=== PATIENT | female | born 1995 | race American Indian/Alaskan Native ===

== ENCOUNTER 2020-04-04 14:52 | Emergency (ER) | payer SELFPAY | END 2020-04-04 15:48 | LOC: ED 14:52 | DX: R42 Dizziness and giddiness (principal); Z53.21 Procedure and treatment not carried out due to patient leaving prior to being seen by health care provider ==

== ENCOUNTER 2020-04-13 14:20 | Emergency (ER) | payer OTHER ==
[2020-04-13] MEDS ORDERED: METOCLOPRAMIDE 10 MG/2 ML INJ IV ONE (14:25)
[2020-04-13] MEDS ORDERED: LACTATED RINGERS 1,000 ML IV ONE (14:25)
[2020-04-13] MEDS ORDERED: diphenhydrAMINE 50 MG/ML VIAL IV ONE (14:25)
--- NOTE | 2020-04-13 14:28 | Emergency Department Report ---
ED General Adult HPI - General Stated complaint: DEHYDRATED Time Seen by Provider: 04/13/20 14:24 - History of Present Illness Initial comments: 24-year-old -[place] female patient presents with complaints of nausea and vomiting starting today. Patient states she had a positive test, however she is unsure of how far along she is. LMP was the first week of February per patient. She is G 4. She is not currently following with an PROJECT MANAGEMENT MANAGER per patient. She admits to mild lower abdominal cramping, but denies any urinary symptoms, vaginal discharge/dyspareunia, stool changes, fever/chills/sweats, chest pain, or shortness of breath. - Related Data Previous Rx's Medication Instructions Recorded Last Taken Type Amoxicillin/Potassium Clav 1 each PO BID 5 Days #10 tablet 04/13/20 Unknown Rx [Augmentin 875-125 Tablet] Metoclopramide [Reglan] 10 mg PO TID PRN #30 tab 04/13/20 Unknown Rx diphenhydrAMINE [Benadryl CAP] 25 mg PO TID PRN #30 capsule 04/13/20 Unknown Rx Allergies Allergy/AdvReac Type Severity Reaction Status Date / Time No Known Allergies Allergy Unverified 04/13/20 14:21 ED Review of Systems ROS: Stated complaint: DEHYDRATED Other details as noted in HPI Constitutional: denies: chills, fever, malaise Respiratory: denies: cough, shortness of breath Cardiovascular: denies: chest pain Gastrointestinal: nausea, vomiting. denies: diarrhea, constipation, hematemesis, melena, hematochezia Genitourinary: denies: urgency, dysuria, frequency, hematuria, discharge, abnormal menses Skin: denies: rash, lesions, change in color Neurological: denies: headache Hematological/Lymphatic: denies: easy bleeding ED Past Medical Hx - Medications Home Medications: Home Medications Medication Instructions Recorded Confirmed Last Taken Type Amoxicillin/Potassium Clav 1 each PO BID 5 Days #10 tablet 04/13/20 Unknown Rx [Augmentin 875-125 Tablet] Metoclopramide [Reglan] 10 mg PO TID PRN #30 tab 04/13/20 Unknown Rx diphenhydrAMINE [Benadryl CAP] 25 mg PO TID PRN #30 capsule 04/13/20 Unknown Rx ED Physical Exam - General General appearance: alert, in no apparent distress - Head Head exam: Present: atraumatic, normocephalic - Eye Eye exam: Present: normal appearance - Neck Neck exam: Present: normal inspection - Respiratory Respiratory exam: Present: normal lung sounds bilaterally. Absent: respiratory distress - Cardiovascular Cardiovascular Exam: Present: regular rate, normal rhythm - GI/Abdominal GI/Abdominal exam: Present: soft, normal bowel sounds. Absent: distended, tenderness, guarding, rebound, rigid - Back Exam Back exam: Present: full ROM - Neurological Exam Neurological exam: Present: alert, oriented X3 - Psychiatric Psychiatric exam: Present: normal affect, normal mood - Skin Skin exam: Present: warm, dry, intact, normal color. Absent: rash ED Course Vital Signs 04/13/20 14:21 Temperature 98.6 F Pulse Rate 91 H Respiratory 18 Rate Blood Pressure 112/64 O2 Sat by Pulse 99 Oximetry ED Medical Decision Making - Lab Data Result diagrams: 04/13/20 14:27 04/13/20 14:27 Lab Results 04/13/20 04/13/20 04/13/20 Range/Units 14:27 14:27 14:27 WBC 10.5 (4.5-11.0) K/mm3 RBC 4.68 (3.65-5.03) M/mm3 Hgb 13.5 (10.1-14.3) gm/dl Hct 39.3 (30.3-42.9) % MCV 84 (79-97) fl MCH 29 (28-32) pg MCHC 35 H (30-34) % RDW 12.5 L (13.2-15.2) % Plt Count 253 (140-440) K/mm3 Lymph % (Auto) 23.6 (13.4-35.0) % Jack % (Auto) 7.0 (0.0-7.3) % Eos % (Auto) 0.8 (0.0-4.3) % Baso % (Auto) 0.3 (0.0-1.8) % Lymph # (Auto) 2.5 (1.2-5.4) K/mm3 Jack # (Auto) 0.7 (0.0-0.8) K/mm3 Eos # (Auto) 0.1 (0.0-0.4) K/mm3 Baso # (Auto) 0.0 (0.0-0.1) K/mm3 Seg Neutrophils % 68.3 (40.0-70.0) % Seg Neutrophils # 7.2 (1.8-7.7) K/mm3 Sodium 136 L (137-145) mmol/L Potassium 3.4 L (3.6-5.0) mmol/L Chloride 99.7 (98-107) mmol/L Carbon Dioxide 26 (22-30) mmol/L Anion Gap 14 mmol/L BUN 8 (7-17) mg/dL Creatinine 0.7 (0.6-1.2) mg/dL Estimated GFR > 60 ml/min BUN/Creatinine Ratio 11 % Glucose 95 (65-100) mg/dL Calcium 9.1 (8.4-10.2) mg/dL Total Bilirubin 0.40 (0.1-1.2) mg/dL AST 16 (5-40) units/L ALT 10 (7-56) units/L Alkaline Phosphatase 40 (35-129) units/L Total Protein 7.1 (6.3-8.2) g/dL Albumin 4.2 (3.9-5) g/dL Albumin/Globulin Ratio 1.4 % HCG, Qual Positive (Negative) HCG, Quant (0-4) mIU/mL Urine Color (Yellow) Urine Turbidity (Clear) Urine pH (5.0-7.0) Ur Specific [place] (1.003-1.030) Urine Protein (Negative) mg/dL Urine Glucose (UA) (Negative) mg/dL Urine Ketones (Negative) mg/dL Urine Blood (Negative) Urine Nitrite (Negative) Urine Bilirubin (Negative) Urine Urobilinogen (<2.0) mg/dL Ur Leukocyte Esterase (Negative) Urine WBC (Auto) (0.0-6.0) /HPF Urine RBC (Auto) (0.0-6.0) /HPF U Epithel Cells (Auto) (0-13.0) /HPF Urine Mucus /HPF Urine Yeast (Budding) /HPF 04/13/20 04/13/20 Range/Units 14:49 15:50 WBC (4.5-11.0) K/mm3 RBC (3.65-5.03) M/mm3 Hgb (10.1-14.3) gm/dl Hct (30.3-42.9) % MCV (79-97) fl MCH (28-32) pg MCHC (30-34) % RDW (13.2-15.2) % Plt Count (140-440) K/mm3 Lymph % (Auto) (13.4-35.0) % Jack % (Auto) (0.0-7.3) % Eos % (Auto) (0.0-4.3) % Baso % (Auto) (0.0-1.8) % Lymph # (Auto) (1.2-5.4) K/mm3 Jack # (Auto) (0.0-0.8) K/mm3 Eos # (Auto) (0.0-0.4) K/mm3 Baso # (Auto) (0.0-0.1) K/mm3 Seg Neutrophils % (40.0-70.0) % Seg Neutrophils # (1.8-7.7) K/mm3 Sodium (137-145) mmol/L Potassium (3.6-5.0) mmol/L Chloride (98-107) mmol/L Carbon Dioxide (22-30) mmol/L Anion Gap mmol/L BUN (7-17) mg/dL Creatinine (0.6-1.2) mg/dL Estimated GFR ml/min BUN/Creatinine Ratio % Glucose (65-100) mg/dL Calcium (8.4-10.2) mg/dL Total Bilirubin (0.1-1.2) mg/dL AST (5-40) units/L ALT (7-56) units/L Alkaline Phosphatase (35-129) units/L Total Protein (6.3-8.2) g/dL Albumin (3.9-5) g/dL Albumin/Globulin Ratio % HCG, Qual (Negative) HCG, Quant 54418 H (0-4) mIU/mL Urine Color [place] (Yellow) Urine Turbidity Slightly-cloudy (Clear) Urine pH 5.0 (5.0-7.0) Ur Specific [place] 1.035 H (1.003-1.030) Urine Protein 100 mg/dl (Negative) mg/dL Urine Glucose (UA) Neg (Negative) mg/dL Urine Ketones 20 (Negative) mg/dL Urine Blood Neg (Negative) Urine Nitrite Neg (Negative) Urine Bilirubin Neg (Negative) Urine Urobilinogen 4.0 (<2.0) mg/dL Ur Leukocyte Esterase Tr (Negative) Urine WBC (Auto) 12.0 H (0.0-6.0) /HPF Urine RBC (Auto) 1.0 (0.0-6.0) /HPF U Epithel Cells (Auto) 5.0 (0-13.0) /HPF Urine Mucus 3+ /HPF Urine Yeast (Budding) Few /HPF - Radiology Data Radiology results: report reviewed FINDINGS: The pole, yolk sac, and gestational sac are normal in appearance. [place]-rump length: 6.8 mm. This corresponds with a gestational age of 6 weeks 4 days. This is consistent with patient's LMP, with clinical gestational age of 8 weeks 1 day based on LMP of 02/16/2020. heart rate: 139 bpm Perigestational hemorrhage: No evidence of perigestational hemorrhage on the provided images. MATERNAL FINDINGS: The uterus measures 11.6 x 7.6 x 9.3 cm. The right ovary demonstrates a normal sonographic appearance. The left ovary demonstrates a normal sonographic appearance. Cul-de-sac: There is no free fluid. IMPRESSION: Viable intrauterine . Gestational age is 6 weeks 4 days by ultrasound, consistent with the patient's LMP. Recommend clinical screening and ultrasound follow-up in the second trimester to screen for anomalies. - Medical Decision Making 24-year-old -[place] female patient presents with complaints of nausea and vomiting starting today. Patient states she had a positive test, however she is unsure of how far along she is. LMP was the first week of February per patient. She is G 4. She is not currently following with an PROJECT MANAGEMENT MANAGER per patient. She admits to mild lower abdominal cramping, but denies any urinary symptoms, vaginal discharge/dyspareunia, stool changes, fever/chills/sweats, chest pain, or shortness of breath. viable 6 week 4 day IUP noted on US without any abnormalities. hCG levels consistent with . No significant abnormalities noted on CBC or CMP. UA shows elevated WBCs-we will treat with Augmentin. Patient provided with referral to PROJECT MANAGEMENT MANAGER and informed to follow-up within 3 days. Strict return precautions were discussed in detail with patient who verbalized understanding. Her vitals are normal, she is well-appearing, she is stable for discharge home. Critical care attestation.: If time is entered above; I have spent that time in minutes in the direct care of this critically ill patient, excluding procedure time. ED Disposition Clinical Impression: Hyperemesis gravidarum UTI (urinary tract infection) Qualifiers: Urinary tract infection type: acute cystitis Hematuria presence: without hematuria Qualified Code(s): N30.00 - Acute cystitis without hematuria Disposition: TO HOME OR SELFCARE Is pt being admited?: No Condition: Stable Instructions: Hyperemesis Gravidarum, and Urinary Tract Infection Prescriptions: Amoxicillin/Potassium Clav [Augmentin 875-125 Tablet] 1 each PO BID 5 Days #10 tablet diphenhydrAMINE [Benadryl CAP] 25 mg PO TID PRN #30 capsule PRN Reason: Nausea Metoclopramide [Reglan] 10 mg PO TID PRN #30 tab PRN Reason: Nausea Referrals: [facility] [Provider Group] - 2-3 Days
[2020-04-13 14:42] VITALS: BP 112/64
[2020-04-13 14:58] LABS: Basophils % (Auto) 0.3 % (0.0-1.8); Eosinophils # (Auto) 0.1 K/mm3 (0.0-0.4); Eosinophils % (Auto) 0.8 % (0.0-4.3); Hematocrit 39.3 % (30.3-42.9); Hemoglobin 13.5 gm/dl (10.1-14.3); Lymphocytes # (Auto) 2.5 K/mm3 (1.2-5.4); Lymphocytes % (Auto) 23.6 % (13.4-35.0); Mean Corpuscular HGB Conc 35 % (30-34); Mean Corpuscular Volume 84 fl (79-97); Monocytes # (Auto) 0.7 K/mm3 (0.0-0.8); Platelet Count 253 K/mm3 (140-440); Red Blood Count 4.68 M/mm3 (3.65-5.03); Red Cell Distribution Width 12.5 % (13.2-15.2)
[2020-04-13 15:03] LABS: Bilirubin,Urine NEG (Negative); Blood,Urine NEG (Negative); Color,Urine Amber (Yellow); Mucus,Urine 3+ /HPF
[2020-04-13 15:09] LABS: Alanine Aminotransferase 10 units/L (7-56); Albumin 4.2 g/dL (3.9-5); Blood Urea Nitrogen 8 mg/dL (7-17); Calcium 9.1 mg/dL (8.4-10.2); Hemolysis Index 12
[2020-04-13 15:10] LABS: BUN/Creatinine Ratio 11
--- NOTE | 2020-04-13 15:44 | Ultrasound Report ---
ULTRASOUND OBSTETRIC REASON FOR EXAM: pain TECHNIQUE: Transabdominal and transvaginal ultrasound was performed to evaluate a first trimester pre gnancy. COMPARISON: None available. FINDINGS: FINDINGS: The pole, yolk sac, and gestational sac are normal in appearance. [place]-rump length: 6.8 mm. This corresponds with a gestational age of 6 weeks 4 days. This is consist ent with patient's LMP, with clinical gestational age of 8 weeks 1 day based on LMP of 02/16/2020. heart rate: 139 bpm Perigestational hemorrhage: No evidence of perigestational hemorrhage on the provided images. MATERNAL FINDINGS: The uterus measures 11.6 x 7.6 x 9.3 cm. The right ovary demonstrates a normal sonographic appearance. The left ovary demonstrates a normal sonographic appearance. Cul-de-sac: There is no free fluid. IMPRESSION: Viable intrauterine . Gestational age is 6 weeks 4 days by ultrasound, consistent with the p atient's LMP. Recommend clinical screening and ultrasound follow-up in the second trimester to screen for anomalies. Signer Name: Jasvir Grier MD Signed: 04/13/2020 3:40 PM Workstation Name: [id number]
== END 2020-04-13 17:52 | disposition home or self-care (01) ==
LOC: ED 14:20
DX: O21.8 Other vomiting complicating pregnancy (principal); O23.41 Unspecified infection of urinary tract in pregnancy, first trimester; Z3A.01 Less than 8 weeks gestation of pregnancy; Z79.899 Other long term (current) drug therapy
CPT/HCPCS: 36415; 76801; 80053; 81001; 84702; 84703; 85025; 87086; 96361; 96374; 96375; 99284; J1200; J2765; J7120

== ENCOUNTER 2020-09-09 17:13 | Outpatient (CLI) | payer OTHER ==
[2020-09-09 17:56] VITALS: BP 111/59
[2020-09-09] MEDS ORDERED: D5W/LACTATED RINGERS 1,000 ML IV ONE (18:50)
[2020-09-09 19:07] LABS: Bacteria,Urine 1+ /HPF (Negative); Bilirubin,Urine NEG (Negative); Blood,Urine NEG (Negative); Color,Urine Yellow (Yellow); Mucus,Urine 1+ /HPF; Protein,Urine <15 mg/dL mg/dL (Negative)
[2020-09-09] MEDS ORDERED: LACTATED RINGERS IV ONE (19:44)
[2020-09-09] MEDS ORDERED: [UNRECOGNIZED DRUG - OTHER] IV ONE (19:44)
[2020-09-09] MEDS ORDERED: ACETAMINOPHEN 500 MG TAB PO ONE (20:12)
== END 2020-09-09 20:55 | disposition home or self-care (01) ==
LOC: TRG 17:13 → APU 17:15 → TRG 20:55
DX: O26.893 Other specified pregnancy related conditions, third trimester (principal); R42 Dizziness and giddiness; R10.30 Lower abdominal pain, unspecified; Z3A.29 29 weeks gestation of pregnancy
CPT/HCPCS: 59025; 81001; 87086; 96360

== ENCOUNTER 2020-11-15 09:29 | Inpatient (IN) | payer OTHER ==
--- NOTE | 2020-11-14 14:01 | History and Physical Report ---
History of Present Illness Date of examination: 11/14/20 Chief complaint: repeat c/s History of present illness: 25 yo at 39w0d (IRAJ 11/22/20) c/b h/o c/s x2 presenting for repeat c/s. Denies labor complaints or PIH symptoms. PNC reviewed Negative unless otherwise specified GBS neg B pos AB neg Past History Past Medical History: no pertinent history Past Surgical History: section (x2) Family/Genetic History: hypertension, other (asthma, bronchitis) Social history: no significant social history - Obstetrical History Expected Date of Delivery: 11/22/20 Actual Gestation: 39 Week(s) 0 Day(s) : 4 Para: 2 Spontaneous Abortions: 1 Number of Living Children: 2 Medications and Allergies Allergies Allergy/AdvReac Type Severity Reaction Status Date / Time No Known Allergies Allergy Verified 09/09/20 18:43 Home Medications Medication Instructions Recorded Confirmed Last Taken Type Amoxicillin/Potassium Clav 1 each PO BID 5 Days #10 tablet 04/13/20 Unknown Rx [Augmentin 875-125 Tablet] Metoclopramide [Reglan] 10 mg PO TID PRN #30 tab 04/13/20 Unknown Rx diphenhydrAMINE [Benadryl CAP] 25 mg PO TID PRN #30 capsule 04/13/20 Unknown Rx Active Meds: Active Medications Citric Acid/Sodium Citrate (Bicitra Oral Liqd 30ml) 30 ml PO ONCE ONE Stop: 11/14/20 13:30 Famotidine (Famotidine 20 Mg/2 Ml Inj) 20 mg IV ONCE ONE Stop: 11/14/20 13:30 Lactated Ringer's (Lactated Ringers) 1,000 mls @ 2,250 mls/hr IV PREOP AUBREY Stop: 11/15/20 13:57 Oxytocin/Sodium Chloride (Pitocin/Ns 30 Unit/500ml) 30 units in 500 mls @ 0 mls/hr IV TITR AUBREY; Protocol Cefazolin Sodium (Ancef/Sterile Water 2 Gm/20 Ml) 2 gm in 20 mls @ 80 mls/hr IV PREOP NR; Protocol Metoclopramide HCl (Metoclopramide 10 Mg/2 Ml Inj) 10 mg IV ONCE ONE Stop: 11/14/20 13:30 Review of Systems All systems: negative (expect HPI) - Physical Exam Abdomen: Positive: normal appearance, normal bowel sounds - Obstetrical FHR: category 1 Uterine Contraction Monitor Mode: External Uterine Contraction Pattern: Absent Results All other labs normal. Assessment and Plan --To OR for repeat c/s --Consented in the chart --Questions solicited and answered
[2020-11-15] MEDS ORDERED: LACTATED RINGERS 1,000 ML ONE ×2 (10:24→13:09)
[2020-11-15] MEDS: LACTATED RINGERS 1,000 ML IV SCH ×2 (10:30→11:30)
--- NOTE | 2020-11-15 10:32 | Anesthesia Day of Surgery ---
Anesthesia Day of Surgery - Day of Surgery Patient Examined: Yes Patient H&P Reviewed: Yes Patient is NPO: Yes
--- NOTE | 2020-11-15 10:32 | Anesthesia Consultation ---
Anesthesia Consult and Med Hx Date of service: 11/15/20 - Airway Anesthetic Teeth Evaluation: Good ROM Head & Neck: Adequate Mental/Hyoid Distance: Adequate Mallampati Class: Class II Intubation Access Assessment: Probably Good - Pulmonary Exam CTA: Yes - Cardiac Exam Cardiac Exam: RRR - Pre-Operative Health Status ASA Pre-Surgery Classification: ASA2 Proposed Anesthetic Plan: Spinal - Pulmonary Hx Asthma: No - Cardiovascular System Hx Hypertension: No - Central Nervous System Hx Seizures: No Hx Psychiatric Problems: No - Endocrine Hx Renal Disease: No Hx Hypothyroidism: No Hx Hyperthyroidism: No - Hematic Hx Anemia: No Hx Sickle Cell Disease: No - Other Systems Hx Alcohol Use: No
[2020-11-15] MEDS ORDERED: METOCLOPRAMIDE 10 MG/2 ML INJ IV NR (11:00)
[2020-11-15] MEDS ORDERED: BICITRA ORAL LIQD 30ML PO NR (11:00)
[2020-11-15] MEDS ORDERED: ceFAZolin/Water 2 GM/20 ML 2 GM/20 ML SYRINGE IV NR (11:00)
[2020-11-15] MEDS ORDERED: FAMOTIDINE 20 MG/2 ML INJ IV NR (11:00)
[2020-11-15] MEDS ORDERED: OXYTOCIN DRIP 30 UNITS/500 ML BAG IV SCH ×2 (11:00→14:00)
[2020-11-15 11:19] LABS: Hematocrit 34.7 % (30.3-42.9); Hemoglobin 11.7 gm/dl (10.1-14.3); Mean Corpuscular HGB Conc 34 % (30-34); Mean Corpuscular Volume 81 fl (79-97); Red Blood Count 4.28 M/mm3 (3.65-5.03); Red Cell Distribution Width 15.1 % (13.2-15.2)
[2020-11-15 11:20] LABS: Basophils % (Auto) 0.2 % (0.0-1.8); Eosinophils # (Auto) 0.1 K/mm3 (0.0-0.4); Eosinophils % (Auto) 0.9 % (0.0-4.3); Lymphocytes # (Auto) 2.2 K/mm3 (1.2-5.4); Lymphocytes % (Auto) 21.7 % (13.4-35.0); Monocytes # (Auto) 0.7 K/mm3 (0.0-0.8); Monocytes % (Auto) 6.7 % (0.0-7.3); Platelet Count 220 K/mm3 (140-440)
[2020-11-15] MEDS ORDERED: SODIUM CHLORIDE 0.9% IRR 1,500 ML BOTTLE IR ONE (12:07)
[2020-11-15] MEDS ORDERED: WATER FOR IRRIG STERILE 1,500 ML BOTTLE IR ONE (12:07)
[2020-11-15] MEDS ORDERED: ACETAMINOPHEN 325 MG TAB PO PRN (12:58)
[2020-11-15] MEDS ORDERED: PROMETHAZINE 25 MG RECT SUPP PR PRN (12:58)
[2020-11-15] MEDS ORDERED: NALOXONE 0.4 MG/1 ML INJ IV PRN (12:58)
[2020-11-15] MEDS ORDERED: LANOLIN/ZINC/DIMETHICONE (LANSINOH) 7 GM TP PRN (12:58)
[2020-11-15] MEDS ORDERED: HYDROCORTISONE 25 MG RECTAL SUPP PR PRN (12:58)
[2020-11-15] MEDS ORDERED: SENNOSIDES 8.6 MG TAB PO PRN (12:58)
[2020-11-15] MEDS ORDERED: WITCH HAZEL/ GLYCERIN PAD TP PRN (12:58)
[2020-11-15] MEDS ORDERED: MAGNESIUM HYDROXIDE (MOM) ORAL LIQD UDC PO PRN (12:58)
[2020-11-15] MEDS ORDERED: ONDANSETRON 4 MG/2 ML INJ IV PRN (12:58)
[2020-11-15] MEDS ORDERED: SIMETHICONE 80 MG CHEW TAB PO PRN (12:58)
--- NOTE | 2020-11-15 13:01 | Procedure Note ---
OB Delivery Note - Delivery Date of Delivery: 11/15/20 Surgeon: HENNY POON JR Estimated blood loss: other (566 cc QBL) - Section Preop diagnosis: repeat Postop diagnosis: same section procedure: section Disposition: PACU Complications: none Narrative: Indication: 25 yo at 39w0d (IRAJ 11/22/20) c/b h/o c/s x2 presenting for repeat c/s. Denies labor complaints or PIH symptoms. Findings: Normal uterus, tubes and ovaries. Clear fluid. nuchal cord x 1, easily reduced. Delivery of female infant at 1218 Weight 2990g Height 19.5 in APGARS 8/9 EBL 566 QBL IVF 2400cc UOP 350cc Procedure: Patient was taken to the operating room prepped and draped in the usual sterile fashion. Pfannenstiel skin incision was made and carried down to the underlying fascia. Fascia was incised and the incision was distended bilaterally. Rectus fascia was dissected off the rectus muscle superiorly and inferiorly. Peritoneum was identified and entered. Peritoneal incision extended superiorly and inferiorly. The bladder was visualized. The bladder blade was placed. Uterine hysterotomy incision was made and extended bilaterally. The baby was delivered in the typical vertex fashion. Baby was bulb suction at delivery. The cord was cut and clamped and handed off to the team. The placenta was delivered spontaneously. The uterus was exteriorized and cleared of all clots and debris. Uterine incision was closed with a 0 Vicryl in a running locked fashion. Good hemostasis was noted. Surgicel powder was applied to the uterine incisional base to provide hemostasis. The urine was noted to be clear. Uterus, tubes, and ovaries were returned to the abdominal cavity. Bilateral gutters were cleared and the abdomen and pelvis were irrigated. Good hemostasis noted. The rectus muscle was reapproximated with 2-0 Vicryl. Attention was directed towards the rectus fascia which was reapproximated with 0 PDS in a running fashion. The subcutaneous tissue was irrigated and reapproximated with 2-0 Vicryl in a running fashion. Skin was closed with a 4-0 Vicryl in a subcuticular fashion. The procedure was completed and the patient tolerated the procedure well. All instruments and lap counts were correct x2. - Infant A at 1 minute: 8 at 5 minutes: 9 Gender: Female
[2020-11-15] MEDS ORDERED: PHENYLEPHRINE/NS 1,000 MCG/10 ML SYRINGE (OR USE) IV ONE (13:09)
[2020-11-15] MEDS ORDERED: dexAMETHasone 20 MG/5 ML VIAL ONE (13:09)
[2020-11-15] MEDS ORDERED: BUPIVACAINE/PF (0.5%) 5 MG/1 ML 30 ML VIAL INFILTRATI ONE (13:09)
[2020-11-15] MEDS: KETOROLAC 30 MG/1 ML INJ IV SCH ×2 (17:39→21:44)
[2020-11-15] MEDS: MORPHINE 4 MG/1 ML INJ IV PRN (18:52)
[2020-11-16] MEDS: MORPHINE 4 MG/1 ML INJ IV PRN (00:18)
[2020-11-16 01:37] LABS: Hematocrit 31.8 % (30.3-42.9); Hemoglobin 10.5 gm/dl (10.1-14.3)
[2020-11-16] MEDS: KETOROLAC 30 MG/1 ML INJ IV SCH (02:25)
[2020-11-16] MEDS: oxyCODONE /ACETAMINOPHEN 5-325MG TAB PO PRN ×3 (03:52→15:07)
--- NOTE | 2020-11-16 11:10 | Post Anesthesia Evaluation ---
- Post Anesthesia Evaluation Patient Participated: Yes Airway Patent: Yes Stable Respiratory Function: Yes Nausea/Vomiting: No Temp > 96.8F: Yes Pain Manageable: Yes Adequeate Hydration: Yes Anesthesia Complications: No Block Receding Appropriately: Yes
--- NOTE | 2020-11-16 11:16 | Progress Note ---
Spinal Anesthesia Block - Spinal Anesthesia Block Start Time: 11:41 Stop Time: 11:43 Performed by:: LIUDMILA YARBROUGH Procedure: Sitting, sterile chlorahexadine 0.5% prep/drape, 1% lidocaine skin local, 25G spinal needle + introducer at L3-4, + CSF, - Heme, [1.9 ml 0.5% bupivacaine + 10 mcg dexmedetomidine] injected, drape removed, patient positioned supine with left uterine displacement, and spinal level verified to be adequate prior to surgery
[2020-11-16] MEDS: IBUPROFEN 800 MG TAB PO PRN ×3 (11:51→22:37)
--- NOTE | 2020-11-16 12:26 | Progress Note ---
Assessment and Plan A: POD #1 Stable P: Follow Routine PostOp Orders Subjective - Subjective Date of service: 11/16/20 Patient reports: appetite normal, voiding normally, pain well controlled, flatus, ambulating normally : doing well Objective - Vital Signs Latest vital signs: Vital Signs Temp Pulse Resp BP BP Pulse Ox Pulse Ox 11/16/20 08:10 98 11/16/20 07:37 98.1 F 60 16 97/62 100 11/16/20 06:14 98.2 F 72 18 110/66 99 11/16/20 03:52 18 11/16/20 00:18 18 11/16/20 00:15 98.0 F 68 18 108/65 100 11/15/20 21:44 18 11/15/20 20:05 98.0 F 69 18 105/67 99 11/15/20 19:35 98 11/15/20 16:13 97.9 F 71 20 108/59 100 11/15/20 14:25 98.0 F 70 16 112/69 98 98 11/15/20 14:10 98.1 F 86 16 110/68 11/15/20 13:58 66 16 108/63 11/15/20 13:43 61 18 105/68 11/15/20 13:28 71 101/65 11/15/20 13:23 70 20 95/56 11/15/20 13:18 71 20 92/55 11/15/20 13:13 97.5 F L 65 20 99/60 Intake and Output 11/15/20 11/16/20 11/16/20 22:59 06:59 14:59 Intake Total 360 600 Output Total 1300 2000 350 Balance -940 -2000 250 Intake: Oral 360 240 Intake, Free Water 360 Output: Urine 1300 2000 350 Indwelling Catheter 1300 2000 Void 350 Other: Total, Intake Amount 360 120 Total, Output Amount 400 400 350 # Voids Indwelling Catheter 1 - Exam Breasts: Present: normal Cardiovascular: Present: Regular rate Lungs: Present: Clear to auscultation, Normal air movement Abdomen: Present: normal appearance, soft, normal bowel sounds Uterus: Present: normal, firm, fundal height below umbilicus Extremities: Present: normal Incision: Present: dry, dressed
[2020-11-17] MEDS: oxyCODONE /ACETAMINOPHEN 5-325MG TAB PO PRN ×4 (01:00→22:21)
[2020-11-17] MEDS: IBUPROFEN 800 MG TAB PO PRN ×2 (04:38→19:48)
--- NOTE | 2020-11-17 14:21 | Progress Note ---
Assessment and Plan A: S/P Repeat LTCS p: Continue routine pp orders Encourage ambulation D/c home tomm if stable Subjective - Subjective Date of service: 11/17/20 Principal diagnosis: Repeat LTCS Patient reports: appetite normal, voiding normally, pain well controlled, ambulating normally : doing well Objective - Vital Signs Latest vital signs: Vital Signs Temp Pulse Resp BP Pulse Ox Pulse Ox 11/17/20 12:31 100 11/17/20 10:28 100 11/17/20 08:23 100 11/17/20 08:05 98.3 F 61 18 105/73 98 11/17/20 04:38 18 11/17/20 01:00 18 11/16/20 22:37 18 11/16/20 20:20 98 11/16/20 16:00 98.5 F 61 18 96/55 98 Intake and Output 11/16/20 11/17/20 11/17/20 22:59 06:59 14:59 Intake Total 840 240 Balance 840 240 Intake: Oral 360 240 Intake, Free Water 480 Other: Total, Intake Amount 360 240 # Voids Void 1 - Exam Breasts: Present: normal Abdomen: Present: normal appearance, soft, normal bowel sounds Vulva: both: normal Uterus: Present: normal, firm, fundal height below umbilicus Extremities: Present: normal Incision: Present: normal, dry, intact
[2020-11-18] MEDS: IBUPROFEN 800 MG TAB PO PRN ×2 (02:24→08:52)
[2020-11-18] MEDS: oxyCODONE /ACETAMINOPHEN 5-325MG TAB PO PRN (04:56)
--- NOTE | 2020-11-18 08:51 | Discharge Summary ---
Providers - Providers Date of Admission: 11/15/20 09:29 Date of discharge: 11/18/20 Attending physician: HENNY POON JR, MD Primary care physician: GILBERTO JOINER MD Hospitalization Reason for admission: section Delivery: Procedure: repeat low transverse Episiotomy: none Laceration: none Incision: normal, dry, intact Other procedures: none complications: none Discharge diagnosis: IUP at term delivered [place] baby: female Hospital course: Pt was admitted to [facility] for a repeat LTCS. She had no pp complications and was d/c'd home in stable condition. See h&p, delvery summary, and pp notes. Condition at discharge: Stable Disposition: 01 HOME / SELF CARE / HOMELESS Plan - Discharge Medications Prescriptions: Ibuprofen [Motrin 800 MG tab] 800 mg PO Q6H PRN #30 tablet PRN Reason: Pain, Mild (1-3) oxyCODONE /ACETAMINOPHEN [Percocet 5/325 mg] 1 tab PO Q6H PRN #30 tablet PRN Reason: Pain, Moderate (4-6) - Provider Discharge Summary Activity: routine, no sex for 6 weeks, no heavy lifting 4 weeks, no strenuous exercise Diet: routine Instructions: routine Additional instructions: [] Smoking cessation referral if applicable(refer to patient education folder for contact #) [] Refer to [facility]'s [facility] Booklet Call your doctor immediately for: * Fever > 100.5 * Heavy vaginal bleeding ( >1 pad per hour) * Severe persistent headache * Shortness of breath * Reddened, hot, painful area to leg or breast * Drainage or odor from incision. * Keep incision clean and dry at all times and follow doctor's instructions regarding bathing/showering - Follow up plan Follow up: GILBERTO JOINER MD [Primary Care Provider] - 14 Days
[2020-11-18 09:18] VITALS: BP 107/64
== END 2020-11-18 10:45 | disposition home or self-care (01) | DRG 766 ==
LOC: APU 09:29 → OB 14:27
PROVIDERS: ADMIT Obstetrics & Gynecology; ATTEND Obstetrics & Gynecology
PROC: 10D00Z1 Extraction of Products of Conception, Low, Open Approach (ICD-10-PCS; principal; 2020-11-15)
DX: O69.81X0 Labor and delivery complicated by cord around neck, without compression, not applicable or unspecified (principal); O34.211 Maternal care for low transverse scar from previous cesarean delivery; Z3A.39 39 weeks gestation of pregnancy; Z37.0 Single live birth; Z20.822 Contact with and (suspected) exposure to COVID-19; Z82.49 Family history of ischemic heart disease and other diseases of the circulatory system; Z82.5 Family history of asthma and other chronic lower respiratory diseases
CPT/HCPCS: 36415; 85014; 85018; 85025; 86850; 86900; 86901; G0378; J1100; J1885; J2270; J2370; J2765; J3490; J7120; U0003